=== PATIENT | female | born 1955 | race Hispanic/Latino ===

== ENCOUNTER 2017-03-19 14:31 | Outpatient (CLI) | payer BC ==
--- NOTE | 2017-03-19 15:09 | RAD ---
LUMBAR SPINE TWO VIEWS: History: Lumbar degenerative disc disease. Comparison: 01-29-17 FINDINGS: Similar appearance of the right L4-5 pedicular screws with interconnecting masha. There is unchanged an terolisthesis of L4 over L5 given the differences in obliquity. Mild calcification of the aorta. IMPRESSION: Similar appearance of the posterior unilateral hardware given the differences in obliquity, with grad e I anterolisthesis of L4 over L5. POS: TPC
== END 2017-03-19 14:32 | disposition home or self-care (01) ==
LOC: TBSIIMAG 14:31
PROVIDERS: ATTEND Neurological Surgery
DX: M51.36 Other intervertebral disc degeneration, lumbar region (principal); Z98.890 Other specified postprocedural states
CPT/HCPCS: 72100

== ENCOUNTER 2017-06-05 09:26 | Outpatient (CLI) | payer BC ==
--- NOTE | 2017-06-05 11:51 | RAD ---
LUMBAR SPINE 2 VIEWS: HISTORY: Low back pain. Prior surgery. COMPARISON: 03/19/17. FINDINGS: There are 5 lumbar-type vertebrae. Right pedicle screws and vertical masha are in place at the L4-5 le vels. Lucency adjacent to the L4 screw is up to 0.5 cm. The distal tip of the L5 pedicle screw now protrudes 0.6 cm anterior to the margin of the L5 vertebral body on the lateral view. Disk space narrowing and grade I spondylolisthesis at the postoperative level is stable. Vertebral body height and alignment otherwise are within normal limits. Other pedicles are intact. IMPRESSION: 1. Change in position of the right L5 screw as detailed above. Concern for malposition in relation to the pedicle. 2. Subtle lucency surrounding the right L4 pedicle screw. Please consider CT lumbar spine for better characterization. POS: SUSAN
== END 2017-06-05 09:27 | disposition home or self-care (01) ==
LOC: TBSIIMAG 09:26
PROVIDERS: ATTEND Neurological Surgery
DX: M48.061 Spinal stenosis, lumbar region without neurogenic claudication (principal); Z98.890 Other specified postprocedural states
CPT/HCPCS: 72100

== ENCOUNTER 2018-01-15 13:02 | Outpatient (CLI) | payer BC ==
--- NOTE | 2018-01-15 16:37 | RAD ---
TWO VIEWS OF THE LUMBAR SPINE 01/15/18 COMPARISON: 06/05/17. HISTORY: Back pain, lumbar radiculopathy. FINDINGS: Pedicle screws are seen on the right at L4 and L5 with a vertically oriented interlocking masha. There is a lucency surrounding the pedicle screw on the right at L5 suggesting loosening. There is anterolisthesis of L4 on L5 measuring 1.1 cm, similar when compared to the prior examination . Frontal imaging suggests possible loosening of the pedicle screw on the right at L4 as well. IMPRESSION: Findings suggesting loosening of the L4 and L5 pedicle screws on the right. Recommend correlation wit h CT examination. Stable anterolisthesis of L4 on L5. Code T. POS: BERNARDINO
== END 2018-01-15 13:03 | disposition home or self-care (01) ==
LOC: TBSIIMAG 13:02
PROVIDERS: ATTEND Neurological Surgery
DX: M54.16 Radiculopathy, lumbar region (principal); M43.16 Spondylolisthesis, lumbar region
CPT/HCPCS: 72100

== ENCOUNTER 2018-03-10 14:33 | Outpatient (CLI) | payer BC ==
--- NOTE | 2018-03-10 15:08 | RAD ---
LUMBAR SPINE TWO VIEWS: History: Lumbar radiculopathy. Comparison: 01-15-18 FINDINGS: Cortical screws on the right at the L4-5 level. The anterolisthesis at L4-5 is again seen, unchanged from 01-15-18. Loss of disc space at L4-5 is stable. Alignment is otherwise preserved. Mild degenerat agustina osteophytes, unchanged. IMPRESSION: Anterolisthesis of L4-5 is unchanged in appearance from 01-15-18. POS: TPC
== END 2018-03-10 14:34 | disposition home or self-care (01) ==
LOC: TBSIIMAG 14:33
PROVIDERS: ATTEND Neurological Surgery
DX: M54.16 Radiculopathy, lumbar region (principal); M43.16 Spondylolisthesis, lumbar region
CPT/HCPCS: 72100

== ENCOUNTER 2018-03-27 07:06 | Outpatient (CLI) | payer BC ==
[2018-03-26 14:26] VITALS: BMI 41.5
[2018-03-27 08:09] VITALS: BP 194/71; TEMP 96.6
--- NOTE | 2018-03-27 10:28 | CT ---
LUMBAR SPINE MYELOGRAM CT: HISTORY: Lumbar radiculopathy. The patient has unilateral fusion at L4-L5. COMPARISON: None. TECHNIQUE: Post myelogram lumbar spine CT is performed from the inner aspect of L1 to the coccyx. Reformatted i mages are submitted for interpretation. FINDINGS: Symmetric attenuation of the psoas muscles. There is atherosclerosis of the aorta, without aneurysm. The visualized solid organs are unremarkable. The urinary bladder and pelvic structures are unremarkable. Minimal diverticulosis of the sigmoid co mora, without evidence of diverticulitis. There are five lumbar type vertebral bodies. Lumbar spine vertebral body height is maintained. Ther e is no fracture. Unilateral right-sided transpedicular screw at L4 and L5. There is perihardware lucency involving th e right L5 transpedicular screw. Of note, the screw does extend beyond the anterior margin of the ve rtebral body. There is 5.4 mm of anterolisthesis of L4 upon L5. There is vacuum disk phenomenon at the L4-L5 level . The conus medullaris terminates at the inferior aspect of L1. T11-T12/T12-L1: No significant central canal stenosis or foraminal narrowing. L1-L2: No significant central canal stenosis or foraminal narrowing. L2-L3: No significant central canal stenosis or neural foraminal narrowing. L3-L4: No significant central canal stenosis or neural foraminal narrowing. L4-L5: There is a generalized disk bulge, along with abnormal soft tissue attenuation, in the left a nd right subarticular zones. The right neural foramen is completely obscured by soft tissue attenuat ion. There is severe stenosis. There is moderate left foraminal narrowing. A laminectomy defect is identified and, overall, there is mild central canal stenosis. L5-S1: There is a generalized disk bulge without significant central canal stenosis. Disk material does encroach upon the left subarticular zone. There is presumed mass effect with partial obscuratio n of the traversing left S1 nerve root. The right subarticular zone is unremarkable. Moderate bilat eral foraminal narrowing. IMPRESSION: 1. Grade 1 anterolisthesis of L4 upon L5. 2. Unilateral right-sided transpedicular screws at L4 and L5. The L5 screw extends down the anterio r margin of the vertebral body, and there is evidence of perihardware lucency along the distal aspect of the screw. 3. Laminectomy defect at L4-L5. There is abnormal soft tissue attenuation in both subarticular zone s, as well as both neural foramina. There is severe right foraminal narrowing. There is moderate le ft foraminal narrowing. No significant central canal stenosis. Vacuum disk phenomenon at L4-L5 is p resent. POS: EBRNARDINO
== END 2018-03-27 10:15 | disposition home or self-care (01) ==
LOC: RAD 07:06
PROVIDERS: ATTEND Neurological Surgery
DX: M51.16 Intervertebral disc disorders with radiculopathy, lumbar region (principal); M43.16 Spondylolisthesis, lumbar region; M48.061 Spinal stenosis, lumbar region without neurogenic claudication; R93.7 Abnormal findings on diagnostic imaging of other parts of musculoskeletal system; Z98.1 Arthrodesis status
CPT/HCPCS: 62304; 72132

== ENCOUNTER 2019-09-17 06:31 | Outpatient (CLI) | payer BC, OTHER ==
[2019-09-17 14:12] LABS: #Basophils 0.1 thou/uL (0.0-0.2); #Eosinphils 0.2 thou/uL (0.0-0.7); #Lymphocytes 1.6 thou/uL (1.20-3.40); #Monocytes 0.6 thou/uL (0.11-0.59); #Neutrophils 3.7 thou/uL (1.40-6.50); %Basophils 1.3 % (0.0-1.0); %Eosinophils 3.3 % (0.0-10.0); %Lymphocytes 26.2 % (21.0-51.0); %Monocytes 9.6 % (0.0-10.0); %Neutrophils 59.6 % (42.0-75.0); Hemoglobin 14.1 g/dL (12.0-16.0); Mean Corpuscular HGB CONC 33.4 g/dL (32.0-36.0); Mean Corpuscular Hemoglobin 30.5 pg (27.0-31.0); Mean Corpuscular Volume 91.1 fL (78.0-98.0); Mean Platelet Volume 7.9 fL (7.4-10.4); Platelet Count 319 thou/uL (130-400); RBC Distribution Width 11.6 % (11.5-14.5); Red Blood Cell (RBC) Count 4.65 mill/uL (4.20-5.40); White Blood Cell (WBC) Count 6.2 thou/uL (4.8-10.8)
[2019-09-17 15:01] LABS: ALT (SGPT) 41 U/L (8-55); AST (SGOT) 71 U/L (5-34); Albumin 3.8 g/dL (3.4-4.8); Alkaline Phosphatase 83 U/L (40-110); Anion Gap 12 mmol/L (10-20); BUN (Urea Nitrogen) 8 mg/dL (9.8-20.1); Bilirubin, Direct 0.3 mg/dL (0.1-0.3); Bilirubin, Total 0.5 mg/dL (0.2-1.2); Calc. Creatinine Clearance 0 mL/min (70-130); Carbon Dioxide 28 mmol/L (23-31); Chloride 107 mmol/L (98-107); Estimated GFR-MDRD 90; Globulin 3.5 g/dL (2.4-3.5); Glucose 88 mg/dL (80-115); Potassium 4.2 mmol/L (3.5-5.1); Protein, Total 7.3 g/dL (6.0-8.3); Sodium 143 mmol/L (136-145)
[2019-09-18 13:21] LABS: SARS-CoV-2 MS2 Positive; SARS-CoV-2 N Gene Positive; SARS-CoV-2 S Gene Positive; SARS-CoV-2 orf1ab Positive
== END 2019-09-17 06:32 | disposition home or self-care (01) ==
LOC: LABBT 06:31
PROVIDERS: ATTEND Internal Medicine Cardiovascular Disease
DX: Z01.812 Encounter for preprocedural laboratory examination (principal); Z11.59 Encounter for screening for other viral diseases; R06.00 Dyspnea, unspecified
CPT/HCPCS: 80053; 80076; 85025; 87635; U0003

== ENCOUNTER → 2019-10-11 | Day surgery (SDC) | payer BC ==
[2019-10-06 16:17] VITALS: BMI 42.3
== END ==
LOC: CCL 05:56
PROVIDERS: ATTEND Internal Medicine Cardiovascular Disease
DX: R06.00 Dyspnea, unspecified (principal); Z53.9 Procedure and treatment not carried out, unspecified reason; I83.899 Varicose veins of unspecified lower extremity with other complications; I10 Essential (primary) hypertension; E78.5 Hyperlipidemia, unspecified; K21.9 Gastro-esophageal reflux disease without esophagitis; E66.9 Obesity, unspecified; Z68.41 Body mass index [BMI] 40.0-44.9, adult; Z79.82 Long term (current) use of aspirin; Z79.899 Other long term (current) drug therapy

== ENCOUNTER 2019-10-19 06:03 | Day surgery (SDC) | payer BC ==
[2019-10-19] MEDS ORDERED: Midazolam HCl 2 mg/2 ml Vial ONE (07:16)
[2019-10-19] MEDS ORDERED: Fentanyl 100 MCG/2 ML VIAL ONE (07:17)
[2019-10-19] MEDS ORDERED: Verapamil 5 MG/2 ML VIAL ONE (07:18)
[2019-10-19] MEDS ORDERED: Heparin 10,000 UNITS/1 ML VIAL ONE (07:18)
[2019-10-19] MEDS ORDERED: Nitroglycerin 100MG/250ML BOT 250 ML ONE (07:18)
--- NOTE | 2019-10-19 07:36 | PRG ---
DATE OF SERVICE: 10/19/2019 Ms. Madrigal returned to [facility]. She was scheduled on 2 separate occasions, but was COVID positive. Given the changing guidelines, Ms. Madrigal has been afebrile without symptoms over the last 14 days. This had to proceed with coronary angiography. I discussed procedure in full detail. Ms. Madrigal's risks include, but not limited to the following: , stroke, UT, need for emergency surgery, vessel dissection, in addition to perforation, loss of limb, in addition to amputation, as well as infection and bleeding requiring antibiotics or a blood transfusion. Other risks include a collection of blood under the skin called a hematoma that may require a blood transfusion, also the risks of renal failure requiring dialysis, in addition to a reaction to the dye causing low blood pressure, low heart rate, and difficulty breathing. The risks of performing percutaneous intervention would include vessel dissection, perforation, need for emergency surgery, in addition to acute stent thrombosis, restenosis, as well as distal embolization causing acute and chronic foot discomfort and possible amputation. All questions were answered. We will also proceed with drug-coated stent placement. There were no complications. Further recommendations pending the above. Job ID: [id number]
[2019-10-19] MEDS ORDERED: hydrALAZINE 20 MG/ML VIAL ONE (08:35)
[2019-10-19] MEDS ORDERED: Iopamidol 370 76% 100 ML VIAL ONE (11:43)
== END 2019-10-19 10:20 | disposition home or self-care (01) ==
LOC: CCL 06:03
PROVIDERS: ATTEND Internal Medicine Cardiovascular Disease
DX: R06.00 Dyspnea, unspecified (principal); I83.899 Varicose veins of unspecified lower extremity with other complications; E78.2 Mixed hyperlipidemia; I10 Essential (primary) hypertension; E78.00 Pure hypercholesterolemia, unspecified; K21.9 Gastro-esophageal reflux disease without esophagitis; E66.9 Obesity, unspecified; Z79.82 Long term (current) use of aspirin; Z79.899 Other long term (current) drug therapy; Z88.8 Allergy status to other drugs, medicaments and biological substances
CPT/HCPCS: 93458; J0360; J1644; J2250; J3010; Q9967

== ENCOUNTER 2021-04-11 07:29 | Outpatient (CLI) | payer MEDICARE | END 2021-04-11 07:30 | disposition home or self-care (01) | LOC: BICMAMMO 07:29 | PROVIDERS: ATTEND Physician Assistant | DX: Z12.31 Encounter for screening mammogram for malignant neoplasm of breast (principal); Z13.820 Encounter for screening for osteoporosis; R74.8 Abnormal levels of other serum enzymes; Z78.0 Asymptomatic menopausal state; Z80.3 Family history of malignant neoplasm of breast; M85.852 Other specified disorders of bone density and structure, left thigh | CPT/HCPCS: 76700; 77063; 77067; 77080 ==

== ENCOUNTER 2022-12-26 17:00 | Outpatient (CLI) | payer MEDICARE | END 2022-12-26 17:01 | disposition home or self-care (01) | LOC: SLEEPLAB 17:00 | PROVIDERS: ATTEND Family Medicine | DX: G47.33 Obstructive sleep apnea (adult) (pediatric) (principal); I10 Essential (primary) hypertension; E66.9 Obesity, unspecified; R06.83 Snoring; I25.10 Atherosclerotic heart disease of native coronary artery without angina pectoris; G47.00 Insomnia, unspecified; Z68.42 Body mass index [BMI] 45.0-49.9, adult | CPT/HCPCS: 95800 ==

== ENCOUNTER 2023-01-31 17:00 | Outpatient (CLI) | payer MEDICARE | END 2023-01-31 17:01 | disposition home or self-care (01) | LOC: SLEEPLAB 17:00 | PROVIDERS: ATTEND Family Medicine | DX: G47.33 Obstructive sleep apnea (adult) (pediatric) (principal); E66.9 Obesity, unspecified; I10 Essential (primary) hypertension; R06.83 Snoring; G47.10 Hypersomnia, unspecified; Z68.42 Body mass index [BMI] 45.0-49.9, adult | CPT/HCPCS: 95811 ==

== ENCOUNTER 2023-05-14 12:50 | Outpatient (CLI) | payer MEDICARE | END 2023-05-14 12:51 | disposition home or self-care (01) | LOC: BICRAD 12:50 | PROVIDERS: ATTEND Neurological Surgery | DX: M47.26 Other spondylosis with radiculopathy, lumbar region (principal); M51.16 Intervertebral disc disorders with radiculopathy, lumbar region; Z98.1 Arthrodesis status | CPT/HCPCS: 72100 ==